=== PATIENT | female | born 1940 | race Caucasian/White ===

== ENCOUNTER → 2016-11-27 | Outpatient (CLI) | payer OTHER, BC ==
--- NOTE | 2016-11-27 10:33 | DX ---
Cervical Spine, Two Views History: Pain, evaluate arthritis, no known trauma Comparison: None available. Findings: Alignment is anatomic but straight. There is minimal spondylolisthesis at C2-C3 and mild re trolistheses between C3 and C7.. There is degenerative disk space narrowing between C3 and C7 worst a t C4-C5.. There are small posterior osteophytes between C3 and C7 and prominent anterior osteophytes between C3 and C6. There is a nuchal ligament ossification behind the spinous process of C7. Overall mineralization is normal.. No fracture deformity is identified. Alignment on the AP view is normal. T here is no evidence for erosive change. Impression: Multilevel spondylosis. If there is concern for instability, consider lateral flexion and extension views.
== END ==
LOC: BMCIMAGING 10:12
PROVIDERS: ATTEND Internal Medicine Rheumatology
DX: M47.812 Spondylosis without myelopathy or radiculopathy, cervical region (principal)

== ENCOUNTER → 2017-03-12 | Outpatient (CLI) | payer OTHER, BC | LOC: BMCIMAGING 09:08 | PROVIDERS: ATTEND Internal Medicine Rheumatology | DX: M47.896 Other spondylosis, lumbar region (principal); M47.897 Other spondylosis, lumbosacral region; M47.894 Other spondylosis, thoracic region; M89.38 Hypertrophy of bone, other site ==

== ENCOUNTER → 2017-06-21 | Outpatient (CLI) | payer OTHER, BC | LOC: BMCIMAGING 08:58 | PROVIDERS: ATTEND Physician Assistant | DX: M25.561 Pain in right knee (principal); M17.11 Unilateral primary osteoarthritis, right knee ==

== ENCOUNTER → 2017-07-12 | Outpatient (CLI) | payer OTHER, BC | LOC: BMCIMAGING 08:47 | PROVIDERS: ATTEND Physician Assistant | DX: M17.12 Unilateral primary osteoarthritis, left knee (principal); M11.262 Other chondrocalcinosis, left knee ==

== ENCOUNTER → 2017-10-08 | Outpatient (CLI) | payer OTHER, BC | LOC: FIMAGING 09:23 | PROVIDERS: ATTEND Internal Medicine | DX: Z12.31 Encounter for screening mammogram for malignant neoplasm of breast (principal) | CPT/HCPCS: G0202 ==

== ENCOUNTER 2018-05-30 11:52 | Emergency (ER) | payer OTHER, BC ==
[2018-05-30 12:17] LABS: PLATELET COUNT 212 10^3/uL (150-400)
--- NOTE | 2018-05-30 12:42 | EDPHY ---
H & P Time Seen by Provider: 05/30/18 12:42 HPI/ROS: CHIEF COMPLAINT: Tightness in the back of the chest HISTORY OF PRESENT ILLNESS: 77-year-old woman was admitted in 2016 for similar symptoms after sushi and was diagnosed with takotsubo syndrome. She has been doing well and recovered her ejection fraction and today at 11:00 a.m. She was getting ready to go to the [employer] grocery store when she misplaced her keys to her car and got really upset. She has some tightness across her back and felt funny with hot and cold flashes in some ways reminiscent of her previous presentation in 2016. It only lasted 5 min and then completely resolved. She did not have coughing or mopped Rebeca or shortness of breath, syncope or palpitations, weakness or numbness in extremities. Symptoms were moderate to severe but are completely gone now. REVIEW OF SYSTEMS: Eye: no change in vision ENT: no sore throat Cardiac: HPI Pulmonary: no cough or SOB Abdomen: no vomiting, diarrhea, abdominal pain Musculoskeletal: no back pain Skin: no rash Neuro: no headache Constitutional: HPI : no urinary symptoms A comprehensive 10 point review of systems is otherwise negative aside from elements mentioned in the history of present illness. PAST MEDICAL HISTORY: Includes hypertension, arthritis, admission in December of 2015 for Takatsubo syndrome. Social history: Here with her son General Appearance: Alert and conversant, cooperative. Eyes: No scleral icterus. ENT, Mouth: Normal mucous membranes. Respiratory: Normal respiratory effort, breath sounds equal, lungs are clear to auscultation. Cardiovascular: Regular rate and rhythm. Good radial pulses bilaterally. Gastrointestinal: Abdomen is soft and non tender. Neurological: Alert, face symmetric, normal motor and sensory in extremities. Speech fluent. Skin: Warm and dry, no rashes. Musculoskeletal: No peripheral edema. No calf tenderness. Psychiatric: Not agitated. Emergency Department course/MDM: Discussed with Batsheva recommends echo and DC if negative, 1303. Patient currently asymptomatic. Pulmonary embolism or aortic dissection unlikely. EKG nonacute and troponin negative. With short duration of symptoms and negative troponin, this would be different than her previous presentation. 1350: echo neg read by cardiology per Batsheva, patient informed, would like to be discharged which I think is reasonable. Smoking Status: Former smoker Constitutional: Initial Vital Signs Temperature (C) 36.7 C 05/30/18 11:52 Heart Rate 69 05/30/18 11:52 Respiratory Rate 18 05/30/18 11:52 Blood Pressure 174/80 H 05/30/18 11:52 O2 Sat (%) 96 05/30/18 11:52 O2 Delivery Mode Room Air Allergies/Adverse Reactions: amoxicillin Allergy (Verified 05/30/18 11:53) nitrofurantoin [From Macrobid] Allergy (Verified 05/30/18 11:53) nitrofurantoin macrocrystalline [From Macrobid] Allergy (Verified 05/30/18 11:53 ) Home Medications: Medication Instructions Recorded Citalopram [CeleXA] 20 mg PO 05/30/18 Hydroxychloroquine Sulfate 05/30/18 Indapamide [INDAPAMIDE] 1.25 mg PO 05/30/18 Labetalol HCl [Trandate 100 mg (*)] 100 mg PO BID 05/30/18 Methotrexate [Xatmep] 2.5 mg PO 05/30/18 Valsartan [Diovan] 320 mg PO 05/30/18 Medical Decision Making - Diagnostics EKG Interpretation: 12-lead EKG interpreted by me; official reading is in trace master. My interpretation is sinus rhythm with APC and late anterior RS transition, left axis. No acute ischemic changes. Differential Diagnosis: Differential diagnosis considered for chest pain or tightness including but not limited to myocardial ischemia, aortic dissection, pericarditis, pulmonary embolus, chest wall pain, pleural inflammation and pulmonary infectious causes. - Data Points Laboratory Results: Laboratory Results 05/30/18 12:05 05/30/18 12:05 05/30/18 05/30/18 05/30/18 12:11 12:05 12:05 WBC 3.84 10^3/uL 10^3/uL (3.80-9.50) RBC 4.25 10^6/uL 10^6/uL (4.18-5.33) Hgb 13.6 g/dL g/dL (12.6-16.3) Hct 38.5 % % (38.0-47.0) MCV 90.6 fL fL (81.5-99.8) MCH 32.0 pg pg (27.9-34.1) MCHC 35.3 g/dL g/dL (32.4-36.7) RDW 13.1 % % (11.5-15.2) Plt Count 212 10^3/uL 10^3/uL (150-400) MPV 9.5 fL fL (8.7-11.7) Neut % (Auto) 58.5 % % (39.3-74.2) Lymph % (Auto) 25.0 % % (15.0-45.0) [place] % (Auto) 12.0 % % (4.5-13.0) Eos % (Auto) 2.9 % % (0.6-7.6) Baso % (Auto) 1.3 % % (0.3-1.7) Nucleat RBC Rel Count 0.0 % % (0.0-0.2) Absolute Neuts (auto) 2.25 10^3/uL 10^3/uL (1.70-6.50) Absolute Lymphs (auto) 0.96 10^3/uL L 10^3/uL (1.00-3.00) Absolute Monos (auto) 0.46 10^3/uL 10^3/uL (0.30-0.80) Absolute Eos (auto) 0.11 10^3/uL 10^3/uL (0.03-0.40) Absolute Basos (auto) 0.05 10^3/uL 10^3/uL (0.02-0.10) Absolute Nucleated RBC 0.00 10^3/uL 10^3/uL (0-0.01) Immature Gran % 0.3 % % (0.0-1.1) Immature Gran # 0.01 10^3/uL 10^3/uL (0.00-0.10) Sodium 127 mEq/L L mEq/L (135-145) Potassium 3.8 mEq/L mEq/L (3.3-5.0) Chloride 93 mEq/L L mEq/L (97-110) Carbon Dioxide 27 mEq/l mEq/l (22-31) Anion Gap 7 mEq/L L mEq/L (8-16) BUN 14 mg/dL mg/dL (7-23) Creatinine 0.6 mg/dL mg/dL (0.6-1.0) Estimated GFR > 60 Glucose 95 mg/dL mg/dL (70-100) Calcium 9.9 mg/dL mg/dL (8.5-10.4) POC Troponin I 0.00 ng/mL ng/mL (0.00-0.08) Point of Care Test Results: Chemistry 05/30/18 12:11 POC Troponin I 0.00 ng/mL ng/mL (0.00-0.08) Departure - Departure Disposition: Home, Routine, Self-Care Clinical Impression: Tightness in chest Condition: Good Instructions: Transthoracic Echocardiogram (ED) Referrals: Edi Phan MD [Medical Doctor] - As per Instructions
--- NOTE | 2018-05-30 12:49 | CPEKG ---
Heart Rate: 60 RR Interval: 1000 P-R Interval: 180 QRSD Interval: 100 QT Interval: 392 QTC Interval: 392 P [place]: 31 QRS [place]: -36 T Wave [place]: 92 EKG Severity - ABNORMAL ECG - EKG Impression: SINUS RHYTHM EKG Impression: ATRIAL PREMATURE COMPLEX EKG Impression: LEFT AXIS DEVIATION EKG Impression: BORDERLINE R WAVE PROGRESSION, ANTERIOR LEADS EKG Impression: BORDERLINE T ABNORMALITIES, ANT-LAT LEADS Electronically Signed By: Galileo Isaacs 30-May-2018 13:10:25
[2018-05-30 13:51] VITALS: BP 153/79
--- NOTE | 2018-05-30 14:56 | ECHO ---
[email or web address] [address] Main: [phone] Fax: [email or web address] Echocardiogram Name: DELORIS JONES MR#: [id number] Study Date: 05/30/2018 Study Time: 01:32 PM Date of : 1940 Age: 77 year(s) Height: 152.4 cm (60 in.) Weight: 73.48 kg (162 lb.) BSA: 1.71 m2 Gender: Female Examination: Echo Indication: Chest pain reminiscent of previous takotsubo Image Quality: Contrast: Requested by: Batsheva Kim BP: 161 mmHg/90 mmHg Heart Rate: Rhythm: Indication: Chest pain reminiscent of previous takotsubo Procedure Staff Manager [employer]: Jenise Louis RDCS Reading Physician: Pranay Faulkner MD Requesting Provider: Conclusions: Normal size left ventricle. The ejection fraction is estimated to be 65-70 %. No regional wall motion abnormality. The left atrium is mildly dilated. Mild mitral annular calcification. Mild mitral valve regurgitation is present. Trivial aortic valve regurgitation. Mild tricuspid regurgitation is present. The pulmonary artery pressure is normal. Trivial pericardial effusion. No significant change compared to 01/26/2016. Measurements: Chambers Valvular Assessment AV/MV Valvular Assessment TV/PV Normal Normal Normal Name Value Range Name Value Range Name Value Range Ao Tori (MM): 3.2 cm (2.2 cm-3.7 AV Vmax: 1.60 m/s (1 m/s-1.7 TR Vmax: 2.86 mm/s ( - ) cm) m/s) TR PGmax: 33 mmHg ( - ) IVSd (2D): 0.6 cm (0.6 cm-1.1 AV maxP mmHg ( - ) syst. PAP: 38 mmHg ( - ) cm) AV meanP mmHg ( - ) LVDd (2D): 5.5 cm (3.9 cm-5.3 AR (PHT): 521 ms ( - ) cm) MV E Vmax: 0.78 m/s ( - ) LVDs (2D): 3.4 cm (2.1 cm-4 MV A Vmax: 0.96 m/s ( - ) cm) MV E/A: 0.81 ( - ) LVPWd (2D): 0.8 cm ( - ) LVEF (MOD4): 60 % (>=55 %) EF Range: 65-70 % Continued Measurements: Chambers Valvular Assessment AV/MV Valvular Assessment TV/PV Patient: DELORIS JONES Study Date: 05/30/2018 Page 1 of 2 01:32 PM Name Value Name Value Name Value LADs: 4.2 cm MV E/E' Septal: 12.10 CVP (est.): 5 mmHg LADs Lon.7 cm MV E/E' Lateral: 8.80 LA Area: 19.2 cm2 AR Vmax: 4.65 cm/s Additional Vessels Name Value Ao Ascendin.7 cm Findings: Left Ventricle: Normal size left ventricle. No LV hypertrophy. Normal global systolic LV function. The ejection fraction is estimated to be 65-70 %. No regional wall motion abnormality. Right Ventricle: Normal size right ventricle. Left Atrium: The left atrium is mildly dilated. Right Atrium: The right atrium is normal in size. Mitral Valve: Mild mitral annular calcification. Mild mitral valve regurgitation is present. Aortic Valve: The aortic valve is normal in appearance and function. The aortic valve is tri-leaflet. Trivial aortic valve regurgitation. Tricuspid Valve: The tricuspid valve is normal in appearance and function. Mild tricuspid regurgitation is present. The pulmonary artery pressure is normal. Pulmonic Valve: The pulmonic valve is normal in appearance and function. Trivial to mild pulmonic valve regurgitation. Aorta: The aorta is normal. Pericardium: Trivial pericardial effusion. (No Signature Object) Patient: DELORIS JONES Study Date: 05/30/2018 Page 2 of 2 01:32 PM [id number]
== END 2018-05-30 14:03 | disposition home or self-care (01) ==
DX: R07.89 Other chest pain (principal); I10 Essential (primary) hypertension; Z87.891 Personal history of nicotine dependence
CPT/HCPCS: 84484-PO

== ENCOUNTER → 2018-10-09 | Outpatient (CLI) | payer OTHER | LOC: FIMAGING 07:49 | PROVIDERS: ATTEND Internal Medicine | DX: Z12.31 Encounter for screening mammogram for malignant neoplasm of breast (principal) ==

== ENCOUNTER → 2019-02-09 | Outpatient (CLI) | payer OTHER | LOC: BMCIMAGING 10:13 | PROVIDERS: ATTEND Internal Medicine | DX: Z13.820 Encounter for screening for osteoporosis (principal); M81.0 Age-related osteoporosis without current pathological fracture ==